=== PATIENT | female | born 2000 | race Caucasian/White ===

== ENCOUNTER 2025-02-12 20:58 | Emergency (ER) | payer BC ==
[~2025-02-12] VITALS: Ht 162.6 cm; Wt 63.6 kg
[2025-02-12 21:07] VITALS: BP 110/76; TEMP 98.4
[2025-02-12] MEDS: DEXAMETHASONE 6 MG TABLET PO STA (21:49)
[2025-02-12] MEDS: ipratropium/albuterol 3ml nebule NEB STA (21:50)
[2025-02-12 21:53] VITALS: PULSE 93; RESP 16
[2025-02-12 21:58] VITALS: PULSE 118; RESP 18; O2SAT 97
--- NOTE | 2025-02-12 22:19 | Physician Documentation ---
History of Present Illness ~ Chief Complaint: Difficulty Breathing Stated Complaint: SOB Time Seen by MD: 21:39 OK to notify your PCP?: Yes Source: patient Mode of Arrival: POV Exam Limitations: no limitations HPI Patient has a history of asthma and has been having some shortness of breath since this morning. She does have a rescue inhaler but that has been unhelpful. She reports that she is getting over a cold and thinks that this may have been the trigger. She is speaking in full sentences. She reports that she had previous asthma flare-ups as a child but has not had any ones this bad since being an adult. Medication Reconciliation Allergies: Coded Allergies: No Known Allergies (Unverified , 02/12/25) Review of Systems All Other Systems at this time: Reviewed and Negative Physical Exam Vital Signs: RN Vital Signs have been reviewed: Yes, Temperature: 98.4, Source: Temporal, Heart Rate: 118, Respiratory Rate: 18, BP: 110/76, Pulse Oximetry: 97, Weight: 63.630 Oxygen Flow Rate: 0 Pulse Oximetry Reflects: adequate oxygenation Physical Exam General: Alert, HEENT: PERRL, EOMI, no injection, moist mucous membranes. Neck: Full range of motion. Respiratory: moderate respiratory distress, expiratory and inspiratory wheezes throughout. Chest: No accessory muscle use. Cardiovascular: Regular rate and rhythm, no murmurs. Gastrointestinal: Soft, nontender, nondistended. Bowels sounds present. Extremities: Normal range of motion, no deformity. Neurologic: Oriented x4. Psychiatric: Normal mood and affect. Skin: Normal color, warm and dry. No edema, no ecchymosis. Progress Results/Orders Results/Orders Completed Orders - SANDRA BARFIELD COMMODITIES CLERK Ipratropium/Albuterol Nebule (Ipratrop/A (02/12/25 21:40) Dexamethasone 6mg Tablet (Dexamethasone (02/12/25 21:49) Medications Received in ER Medications (Trade) Dose Ordered Sig/Jennifer Route PRN Reason Start Time Stop Time Status Last Admin Dose Admin (ipratrop/ albuterol 0.5-3(2.5) MG/3ml nebule) 3 ml ONCE STAT NEB 02/12/25 21:40 02/12/25 21:41 DC 02/12/25 21:50 3 ML (Dexamethasone 6mg tablet) 6 mg ONCE STAT PO 02/12/25 21:49 02/12/25 22:00 DC 02/12/25 21:49 6 MG Vital Signs 02/12/25 02/12/25 02/12/25 02/12/25 21:07 21:53 21:58 22:52 Temp 98.4 Pulse 102 93 118 87 Resp 22 16 18 18 B/P (MAP) 110/76 Pulse Ox 97 97 97 O2 Delivery Room Air* Room Air* O2 Flow Rate 0 0 0 FiO2 21 21 Medical Decision Making Additional information obtaine: family Findings Reports having an asthma exacerbation. Denies cardiac history She reports that she had many of these as a child but has not had many as the in adult. She has tried using her rescue inhaler with no relief. She reports that she has had an upper respiratory illness for the past couple of days in his currently getting over but thinks that this may have been the trigger to her exacerbation tonight. Patient received dexamethasone tablet as this is longer acting than Solu-Medrol and she is moving to [place] in the morning and is unable to mushroom picker a prednisone prescription. She received a DuoNeb treatment in the department and is feeling much better. On reassessment, physical exam reveals clear breath sounds, no more wheezes. She is speaking in full sentences and appears much more comfortable. We discussed that she may benefit from having a different inhaler such as 1 with albuterol and budesonide in it but she should talk to her primary care provider about this. Heart Score: 0 Differential Dx:Considerations: Include: anxiety, bronchitis, pneumonia, pneumonitis, pneumothorax, PSVT, pulmonary embolism, respiratory failure Departure Disposition: HOME / SELF CARE / HOMELESS Impression: Primary Impression: Asthma exacerbation attacks Condition: Stable Discharge Instructions: Asthma, Adult Additional Instructions: Speak with your PCP about getting a different rescue inhaler that does have budesonide in it. Return back here or any ER if you have any new or worsening symptoms. Referrals: NO PRIMARY CARE PROVIDER (PCP) Education Educated: Patient Educated regarding: diagnosis, treatment, prognosis, need for follow up Additional Comment Medical Screen Exam This patient recieved a medical screening examination. After reviewing the individual's medical complaints with presenting symptoms and performing an appropriate physical examination, it was determined that no immediate life- threatening emergency medical condition is present. This individual is also not a women having contractions. Signature Scribe Signature: . Attestation: Scribed for Sandra Barfield Creative Coordinator by Sandra Keith NP . 02/13/25 02:28 Parts of this note were created using [employer] voice recognition software program. While efforts were made to correct any mistakes made by this voice recognition software program, nonsensical phrases may remain in this note. In addition, there may be errors and syntax, grammar, content and spelling. SANDRA BARFIELD [facility] Feb 12, 2025 22:19
[2025-02-12 22:52] VITALS: PULSE 87; RESP 18; O2SAT 97
== END 2025-02-12 22:53 | disposition home or self-care (01) ==
LOC: ER 20:59
DX: J45.901 Unspecified asthma with (acute) exacerbation (principal)
CPT/HCPCS: 94640; 94760; 99283; J8540